=== PATIENT | female | born 1930 | race Two or more races ===

== ENCOUNTER 2016-12-12 20:57 | Inpatient (IN) | payer MEDICAID, OTHER ==
[~2016-12-12] VITALS: Ht 162.6 cm; Wt 54.4 kg
--- NOTE | 2016-12-12 21:00 | NUR ---
PT FANY FROM HOME. PT'S FAMILY CALLED 911 BECAUSE OF ERRATIC BEHAVIOR, CONFUSION. HX OF DEMENTIA. RECENTLY DIAGNOSED W/ UTI AT A DIFFERENT HOSPITAL. GOWNED AND PLACED ON MONITOR. AWAITING MD MCCLAIN.
[2016-12-12] MEDS ORDERED: DEXTROSE 50%-WATER 50 ML DISP.SYRIN ONE (22:02)
--- NOTE | 2016-12-12 22:05 | NUR ---
DR GAMINO AT BEDSIDE FOR EVAL.
[2016-12-12] MEDS ORDERED: LORAZEPAM INJ 2 MG/ML VIAL ONE (22:20)
--- NOTE | 2016-12-12 22:20 | NUR ---
PT STILL AGITATED. DR SLAUGHTER AT BEDSIDE MADE AWARE. ATIVAN 1MG IVP GIVEN PER VERBAL ORDER.
[2016-12-12] MEDS ORDERED: DEXTROSE 50%-WATER 50 ML DISP.SYRIN IVP ONE (22:30)
[2016-12-12] MEDS ORDERED: LEVOFLOXACIN 750 MG /D5W 150ML 150 ML IV ONE ×2 (22:30→23:22)
--- NOTE | 2016-12-12 22:40 | NUR ---
PT IS STILL AGITATED. VERBAL ORDER FOR ANOTHER ATIVAN 1MG IVP. CARRIED OUT.
[2016-12-12 22:41] LABS: BASOPHILS % (AUTO) 0.5 % (0.0-2.0); EOSINOPHILS # (AUTO) 0.2 /CMM (0.0-0.7); EOSINOPHILS % (AUTO) 2.7 % (0.0-6.0); HEMATOCRIT 35 % (33-45); HEMOGLOBIN 11.8 g/dL (11.5-14.8); LYMPHOCYTES # (AUTO) 1.9 /CMM (0.8-4.8); LYMPHOCYTES % (AUTO) 23.2 % (20.0-44.0); MEAN CORPUSCULAR HEMOGLOBIN 29 PG (26.0-33.0); MEAN CORPUSCULAR HGB CONC 33 g/dl (31.0-36.0); MEAN CORPUSCULAR VOLUME 87 fL (82-100); MONOCYTES # (AUTO) 0.8 /CMM (0.1-1.30); MONOCYTES % (AUTO) 9.2 % (2.0-12.0); NEUTROPHILS # (AUTO) 5.3 /CMM (1.8-8.9); NEUTROPHILS % (AUTO) 64.4 % (43.0-81.0); PLATELET COUNT (AUTO) 215 /CMM (150-450); RDW COEFFICIENT OF VARIATION 13.4 (11.5-15.0); RED BLOOD CELL COUNT(AUTO) 4.08 MIL/uL (4.0-5.2); WHITE BLOOD COUNT (AUTO) 8.3 K/uL (4.3-11.0)
[2016-12-12 22:53] LABS: SERUM AMMONIA < 10 umol/L (11-32)
[2016-12-12 22:54] LABS: CALCIUM, SERUM 9.8 mg/dL (8.5-10.1); CARBON DIOXIDE 22 mmol/L (21-32); CHLORIDE 106 mmol/L (98-107); CREATININE 2.3 mg/dL (0.6-1.3); GLUCOSE 223 mg/dL (74-106); SODIUM SERUM 139 mmol/L (136-145); UREA NITROGEN, BLOOD 21 mg/dL (7-18)
[2016-12-12 22:55] LABS: PROTHROMBIN TIME 10.4 SECS (9.5-12.7)
[2016-12-12 22:59] LABS: TROPONIN I < 0.017 ng/mL (0.00-0.056)
[2016-12-12] MEDS ORDERED: LORAZEPAM INJ 2 MG/ML VIAL IV ONE (23:00)
[2016-12-12] MEDS ORDERED: IV NS 0.9% 1,000 ML BAG IV ONE (23:00)
[2016-12-12 23:05] LABS: THYROID STIMULATING HORMONE 1.223 uIU/mL (0.358-3.74)
[2016-12-12 23:06] LABS: ALANINE AMINOTRANSFERASE 19 U/L (12-78); ALBUMIN 2.9 g/dL (3.4-5.0); ALCOHOL, BLOOD < 3 mg/dL (0-0); ALKALINE PHOSPHATASE 84 U/L (46-116); ASPARTATE AMINOTRANSFERASE 22 U/L (15-37); BILIRUBIN,DIRECT 0.1 mg/dL (0.0-0.2); BILIRUBIN,TOTAL 0.6 mg/dL (0.2-1.0); TOTAL PROTEIN, SERUM 6.7 g/dL (6.4-8.2)
[2016-12-12 23:12] LABS: ACETAMINOPHEN 0 ug/ml (10-30); SALICYLATE 0.9 mg/dL (2.8-20.0)
[2016-12-13] VITALS (18 sets, daily range): BP systolic 32–152; BP diastolic 18–86
[2016-12-13] MEDS ORDERED: HALOPERIDOL LACTATE INJ 5 MG/ML VIAL IV ONE
[2016-12-13] MEDS ORDERED: diphenhydrAMINE HCL 50 MG/ML VIAL IV ONE
[2016-12-13] MEDS ORDERED: IV NS 0.9% 1,000 ML BAG IV ONE
[2016-12-13 00:06] LABS: APPEARANCE,URINE SL CLOUDY (CLEAR); BILIRUBIN,URINE NEGATIVE (NEGATIVE); BLOOD, URINE 3+ Ery/uL (NEGATIVE); COLOR,URINE YELLOW (YELLOW); KETONES,URINE NEGATIVE (NEGATIVE); LEUKOCYTE ESTERASE ,URINE TRACE (NEGATIVE); NITRITE, URINE NEGATIVE (NEGATIVE); PROTEIN,URINE 2+ mg/dl (NEGATIVE); UGLUCOSE TRACE mg/dL (NEGATIVE); UROBILINOGEN,URINE 0.2 EU/dL (0.2)
[2016-12-13] MEDS ORDERED: HALOPERIDOL LACTATE INJ 5 MG/ML VIAL ONE (00:09)
[2016-12-13] MEDS ORDERED: diphenhydrAMINE HCL 50 MG/ML VIAL ONE (00:09)
--- NOTE | 2016-12-13 00:10 | NUR ---
HALF LITER NS BOLUS ORDERED BY SERENITY SLAUGHTER. CARRIED OUT.
[2016-12-13 00:11] LABS: BACTERIA,URINE None seen /HPF (None Seen); SQUAMOUS EPITHELIAL CELL,UR Few /HPF (None Seen)
--- NOTE | 2016-12-13 00:38 | NUR ---
CALLED RADIOLOGY TO ATTEMPT CT STUDY
[2016-12-13] MEDS ORDERED: IV NS 0.9% 1,000 ML IV PRN (02:41)
[2016-12-13] MEDS ORDERED: POTASSIUM CL. PREMIX PERIPHER. 50 ML ONE ×2 (02:54→04:13)
[2016-12-13] MEDS ORDERED: ACETAMINOPHEN 325 MG TABLET PO PRN (03:00)
[2016-12-13] MEDS ORDERED: ONDANSETRON HCL/PF 4 MG/2 ML VIAL IVP PRN (03:00)
[2016-12-13] MEDS ORDERED: MAG HYDROX/AL HYDROX/SIMETH 30 ML UDC PO PRN (03:00)
[2016-12-13] MEDS ORDERED: MAGNESIUM HYDROXIDE 30 ML UDC PO PRN (03:00)
[2016-12-13] MEDS: POTASSIUM CL. PREMIX PERIPHER. 50 ML IV SCH ×2 (03:00→04:11)
[2016-12-13] MEDS ORDERED: LORAZEPAM INJ 2 MG/ML VIAL IV PRN (03:30)
--- NOTE | 2016-12-13 05:19 | NUR ---
Unable to assess no family at the [facility] pt nonenglish speaking Addendum: 12/13/16 at 0611 by SUSI GANNON RN Amended: Links added.
--- NOTE | 2016-12-13 06:19 | NUR ---
RECIEVED PT FROM er AT 0430 ALERT, NONENGLISH SPEAKING, SEEMS TO HAVE SOME UNDERSTANDING OF [place]. Seen by her followinh my directions. Carrillo in place. Bedalarm on.
[2016-12-13 07:16] LABS: ALANINE AMINOTRANSFERASE 22 U/L (12-78); ALBUMIN 2.9 g/dL (3.4-5.0); ALKALINE PHOSPHATASE 87 U/L (46-116); ASPARTATE AMINOTRANSFERASE 23 U/L (15-37); BILIRUBIN,DIRECT 0.1 mg/dL (0.0-0.2); BILIRUBIN,TOTAL 0.5 mg/dL (0.2-1.0); CALCIUM, SERUM 9.5 mg/dL (8.5-10.1); CARBON DIOXIDE 23 mmol/L (21-32); CHLORIDE 110 mmol/L (98-107); CREATININE 2.1 mg/dL (0.6-1.3); GLUCOSE 65 mg/dL (74-106); MAGNESIUM 2.4 mg/dL (1.8-2.4); PHOSPHORUS 3.1 mg/dL (2.5-4.9); POTASSIUM 3.4 mmol/L (3.5-5.1); SODIUM SERUM 145 mmol/L (136-145); TOTAL PROTEIN, SERUM 6.9 g/dL (6.4-8.2); UREA NITROGEN, BLOOD 19 mg/dL (7-18)
[2016-12-13 07:30] LABS: CHOLESTEROL 125 mg/dL (<200); HDL CHOLESTEROL 28 mg/dL (40-60); LDL 78 mg/dL (0-99); THYROID STIMULATING HORMONE 1.324 uIU/mL (0.358-3.74); TRIGLYCERIDES 120 mg/dL (30-150)
[2016-12-13] MEDS ORDERED: PANTOPRAZOLE 40 MG TABLET.DR PO SCH (07:30)
[2016-12-13] MEDS ORDERED: AMLO10TA2 PO (08:19)
[2016-12-13] MEDS ORDERED: ASPI-991 PO (08:19)
[2016-12-13] MEDS ORDERED: SIMV20TA6 PO (08:19)
[2016-12-13] MEDS ORDERED: DONE10TA44 PO (08:19)
[2016-12-13] MEDS ORDERED: QUET25TA PO (08:19)
[2016-12-13] MEDS ORDERED: HYDR-4077 PO (08:19)
[2016-12-13] MEDS ORDERED: FERR-58 PO (08:19)
--- NOTE | 2016-12-13 08:19 | NUR ---
RECEIVED PATIENT UP IN BED, AWAKE, CALM, NO SOB, BREATHING EVEN AND UNLABORED, NO FACIAL GRIMACING NOTED. PATIENT WITH PERIPHERAL IV ON RIGHT HAND RECEIVING NS @ 75 CC/ HR. TOLERATING BREAKFAST WELL. PATIENT WITH NO SIGNS AND SYMPTOMS OF ACUTE DISTRESS. PATIENT'S NEEDS ATTENDED TO, BED ALARM TURNED ON FOR PATIENT'S SAFETY. WILL CONTINUE TO MONITOR.
[2016-12-13] MEDS ORDERED: METO50TA3 PO (08:20)
[2016-12-13] MEDS: hydrALAZINE HCL 50 MG TABLET PO SCH ×3 (09:00→17:00)
[2016-12-13] MEDS ORDERED: ASPIRIN EC 81 MG TABLET.DR PO SCH (09:00)
[2016-12-13] MEDS ORDERED: AMLODIPINE BESYLATE 10 MG TABLET PO SCH (09:00)
[2016-12-13] MEDS: METOPROLOL TARTRATE 50 MG TABLET PO SCH ×2 (09:00→17:00)
[2016-12-13] MEDS ORDERED: FERROUS SULFATE (325 MG) 325 MG/TAB TABLET PO SCH (09:00)
[2016-12-13] MEDS ORDERED: CEFTRIAXONE 1 G in IV D5W 50 ML IV SCH (09:00)
[2016-12-13] MEDS ORDERED: QUETIAPINE FUMARATE 25 MG TABLET PO SCH ×2 (09:00→17:00)
[2016-12-13] MEDS ORDERED: *INSULIN REGULAR(HUMULIN R)HUM 100 UNIT/ML VIAL SQ PRN (09:30)
[2016-12-13] MEDS ORDERED: INSULIN REGULAR, HUMAN 100 UNIT/ML 3 ML VIAL SQ PRN (09:30)
[2016-12-13] MEDS ORDERED: DEXTROSE 50%-WATER 50 ML DISP.SYRIN IV PRN (09:30)
[2016-12-13] MEDS ORDERED: POTASSIUM CHLORIDE 20 MEQ TAB.PRT.SR PO ONE (09:30)
[2016-12-13] MEDS: BLOOD SUGAR DIAGNOSTIC 1 EACH STRIP IN SCH ×2 (11:59→17:30)
--- NOTE | 2016-12-13 12:00 | NUR ---
RN MS NOTES PT IN BED, AWAKE, ALERT NO SIGN OF PAIN OR DISTRESS, TOLERATING ROOM AIR WELL, PT SEEN BY CRYS, ORDERS MADE AND CARRIED OUT, ASSISTED WITH MEALS, PT NOTED TO HAVE GOOD APPETITE, BED ALARM ON, SAFETY PRECAUTIONS OBSERVED.
--- NOTE | 2016-12-13 13:30 | NUR ---
RN MS NOTES PT AWAKE, IN BED, GETTING ANXIOUS AND TRYING TO GET OUT OF BED, ATIVAN GIVEN ORDERED, KEPT CUT OFF WORKER BED.
--- NOTE | 2016-12-13 14:30 | NUR ---
RN MS NOTES PT IN BED, AWAKE, VERBALLY RESPONSIVE, NO SIGN OF PAIN OR DISTRESS, BREATHING PATTERN NORMAL AND NOT LABORED, CALL LIGHT WITHIN REACH, SAFETY PRECAUTIONS OBSERVED, HOURLY ROUNDING DONE, NEEDS ATTENDED.
--- NOTE | 2016-12-13 16:09 | NUR ---
Patient primary language is Armenian. She lives locally with family. She ambulates with a walker, requires assistance with adl's. Family is involved and supportive with plan of care. Current plan is to return home, family will provide ride to home. Addendum: 12/13/16 at 1610 by ADAM BELL RN Amended: Links added.
--- NOTE | 2016-12-13 16:15 | NUR ---
RN MS NOTES NOTED PT NON RESPONSIVE, UNABLE TO AROUSE, NO PALPABLE PULSE, NO CHEST RISE NOTED, CALLED CODE BLUE, RAPID RESPONSE TEAM ARRIVED IMMEDIATELY, STARTED CPR AT 1616, DR. KELLEY AT BEDSIDE GIVING ORDERS, AT 1632, BP 88/53, HR 67, AT 1636 PT WAS TRANSFERRED TO ICU BED 253-1, REPORT GIVEN TO KAREN HAM.
[2016-12-13] MEDS ORDERED: DEXTROSE 50%-WATER 50 ML DISP.SYRIN IV ONE (16:57)
[2016-12-13] MEDS ORDERED: EPINEPHRINE (1:10,000) SYRINGE 1 MG/10 ML DISP.SYRIN IVP ONE ×2 (16:57→18:44)
[2016-12-13] MEDS ORDERED: NOREPINEPHRINE 4 MG/4 ML AMPUL IV ONE (16:57)
[2016-12-13] MEDS ORDERED: FEE EMEERGENCY 1 MIN EA MC ONE (16:57)
[2016-12-13] MEDS ORDERED: AMIODARONE 150 MG/3 ML VIAL IV ONE ×2 (16:57→18:44)
[2016-12-13] MEDS ORDERED: AMIODARONE 900 MG in IV D5W 482 ML IV PRN ×4 (17:00)
[2016-12-13] MEDS ORDERED: NOREPINEPHRINE 8 MG in IV D5W 500 ML IV PRN (17:00)
--- NOTE | 2016-12-13 17:00 | NUR ---
ICU/RN PT TRANSFERRED FROM M/S ,POST CODE BLUE.INTUBATED ON THE VENT AC MODE,FIO2-100%.LOW BP .A-FIB ON MONITOR. LEVOPHED AND AMIODARONE DRIPS STARTED ORDERED.PT IS NOT RESPONSIVE.FAMILY NOTIFIED.PER FAMILY REQUEST PT IS FULL CODE.NEW IV STARTED.BOLUS NS 1000 ML GIVEN ORDERED.
--- NOTE | 2016-12-13 17:00 | NUR ---
ICU NOTE RECEIVED PT S/P CODE BLUE, REPORT PT INTUBATED, ETT 7.5 @ 22 CM LIPLINE AC 16 TV 450 FO2 100%, PEEP 0, PTS HR 58 A FIB, BP 69/46, PT HAS RIGHT HAND #22G, INSERTED LAC # 20G, PUPILS FIXED AND DILATED, F/C IN PLACE, DIFIB PADS IN PLACE.
--- NOTE | 2016-12-13 17:03 | NUR ---
PT. 86 Y OLD FEMALE CODE BLUE 1615 X4 RT'S AT THE BEDSIDE. CPR STARTED AND PT. AMBU BAG PER PROTOCOL. ASSIST DR. KELLEY, ER INTUBATED @1619 ETT 7.5 @ 22CM LIP LINE PT. TRANSFERRED TO ICU0 PLACED ON VENT WITH NOTED SETTINGS. (AC 16,450 100%) CONTINUE MONITOR AND CARE. AMBU BAG REMAIN AT THE BEDSIDE.
--- NOTE | 2016-12-13 17:15 | NUR ---
ICU/RN SECOND CODE BLUE ACTIVATED.PT IS PEA.ER MD AT BED SIDE .SEE DETAILS-CODE BLUE RECORD.
[2016-12-13] MEDS ORDERED: DOPamine 400 MG in IV D5W 250 ML IV PRN (17:30)
[2016-12-13 17:43] LABS: ABG BASE EXCESS -21.7 mmol/L; ABG OXYGEN SATURATION 98.4 % (92.0-98.5); ABG PCO2 41.5 mmHg (35.0-45.0); ABG PH 6.963 (7.350-7.450); ABG PO2 575.1 mmHg (75.0-100.0); AaDO2 96.4 mmHg; COHb 0.1 % (0.5-1.5); MetHb 1.1 % (0.0-1.5); O2Hb 97.2 % (94.0-97.0); SITE, ABG Right Femoral; VENT MODE, BG AMBU BAG CPR
--- NOTE | 2016-12-13 17:55 | NUR ---
ICU/RN PT HAS PULSE 38-BPM.ER MD AT BED SIDE. A-LINE INSERTED.ON DOPAMINE AND LEVOPHED DRIPS.NS 1000 ML BOLUS STARTED ORDERED.INTRAOSSEOUS PLACED .CONTINUE MONITORING.FAMILY AT BEDSIDE. TALKING TO OSCAR BENOIT.
[2016-12-13] MEDS ORDERED: SODIUM BICARBONATE SYR 50 MEQ/50 ML DISP.SYRIN IV ONE (18:44)
[2016-12-13] MEDS ORDERED: CALCIUM CHLORIDE 1,000 MG/10 ML DISP.SYRIN IV ONE (18:44)
[2016-12-13] MEDS ORDERED: ATROPINE SULFATE 1 MG/10 ML DISP.SYRIN IV ONE (18:44)
--- NOTE | 2016-12-13 19:06 | NUR ---
ICU NOTE CRYS BENOIT AT BEDSIDE, PUPILS ARE FIXED AND DILATE, PT HAS NO GAG REFLEX, PER FAMILY, STOP EVERYTHING EXCEPT BREATHING MACHINE, ALL BP MEDICATIONS D/C.
--- NOTE | 2016-12-13 19:30 | NUR ---
RN NOTES RECEIVED THE PATIENT ON VENT, POST CODE BLUE. PT IS UNRESPONSIVE, EYES FIXED AND DILATED, NO GAG REFLEX PER CRYS PLANT TECH ASSESSMENT AT BEDSIDE. ON VENT WITH SETTINGS AC 16, TV 450, 100% FIO2, 0 PEEP. FAMILY HAS DECIDED FOR PATIENT TO BE DNR AND ALL MEDICATIONS TO BE STOPPED. PER CRYS PLANT TECH, STOP ALL MEDS INCLUDING IV DRIPS. [facility] VENT TO BE MAINTAINED UNTIL LAST FAMILY MEMBER ARRIVES. HR IS NOW 40'S. UNABLE TO OBTAIN BP AT THIS POINT. BED LOW AND LOCKED, SIDERAILS UP. WILL MONITOR
--- NOTE | 2016-12-13 19:44 | NUR ---
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
--- NOTE | 2016-12-13 19:52 | NUR ---
ICU/RN-PRONOUNCEMENT OF : PATIENT CODE STATUS"DO NOT RESUSCITATE". UNRESPONSIVE TO ANY FORM OF STIMULI. PUPILS ARE FIXED AND DILATED. EKG, ASYSTOLE X 2 LEADS. APNEIC, RESPIRATIONS ARE ABSENT. PERIPHERAL PULSES ABSENT. NO SIGNS OF LIFE. PATIENT PRONOUNCED AT 1951. BY :ALPHONSE RUCKER
--- NOTE | 2016-12-13 19:54 | NUR ---
ICU NOTE CRYS BENOIT DIAGNOSTIC TECHNICIAN, SPOKE WITH FAMILY REGARDING CXR RESULTS, FAMILY DOES NOT WANT ANY AGGRESSIVE TREATMENT
--- NOTE | 2016-12-13 20:26 | NUR ---
RN NOTES 1949 - PT IS PRONOUNCED / BY CLAIMS SPECIALIST. NO HR, BP, AND PULSE NOTED. PATIENT IS TAKEN OFF MECH VENT. 1999 - FAMILY CALLED BY CLAIMS SPECIALIST. ADMITTING AND NURSING MAIL READER NOTIFIED WELL. 2003 - BAGGAGE AGENT SUPERVISOR CALLED TO REPORT . PT IS NOT A BAGGAGE AGENT SUPERVISOR'S CASE. 2009 - [facility] CALLED TO REPORT . PER ANNALEE ([facility] REP), PT IS NOT QUALIFIED A DONOR BECAUSE OF PT AGE. CASE # [id number] Addendum: 12/13/16 at 2119 by ABDIRASHID ANDERSON RN CRYS TRUSTEE OF ESTATE WAS AT BEDSIDE WHEN PT WAS PRONOUNCED /
--- NOTE | 2016-12-13 20:38 | NUR ---
Patient primary language is Syriac.She lives locally with family. She ambulates with a walker, requires assistance with adl's. Patient is currently on service with [facility] [phone]. Family is involved and supportive with plan of care. Current plan is to return home,family will provide ride to home. Addendum: 12/13/16 at 2037 by ADAM BELL RN Amended: Links added.
[2016-12-13] MEDS ORDERED: SIMVASTATIN 20 MG TABLET PO SCH (22:00)
[2016-12-13] MEDS ORDERED: DONEPEZIL 5 MG TABLET PO SCH (22:00)
== END 2016-12-13 19:52 | disposition expired | DRG 420 ==
LOC: ER 20:59 → TELE 12-13 02:10 → MED 12-13 10:07 → ICU 12-13 16:47
PROVIDERS: ADMIT Nurse Practitioner Acute Care; ATTEND Nurse Practitioner Acute Care
DX: E11.649 Type 2 diabetes mellitus with hypoglycemia without coma (principal); R57.0 Cardiogenic shock; G93.41 Metabolic encephalopathy; N17.9 Acute kidney failure, unspecified; E11.22 Type 2 diabetes mellitus with diabetic chronic kidney disease; N39.0 Urinary tract infection, site not specified; E78.5 Hyperlipidemia, unspecified; E87.6 Hypokalemia; I25.10 Atherosclerotic heart disease of native coronary artery without angina pectoris; N18.9 Chronic kidney disease, unspecified; E87.2 Acidosis; F03.90 Unspecified dementia, unspecified severity, without behavioral disturbance, psychotic disturbance, mood disturbance, and anxiety; Z79.84 Long term (current) use of oral hypoglycemic drugs; G31.9 Degenerative disease of nervous system, unspecified; F03.91 Unspecified dementia, unspecified severity, with behavioral disturbance; Z66 Do not resuscitate; I13.0 Hypertensive heart and chronic kidney disease with heart failure and stage 1 through stage 4 chronic kidney disease, or unspecified chronic kidney disease; I12.9 Hypertensive chronic kidney disease with stage 1 through stage 4 chronic kidney disease, or unspecified chronic kidney disease
CPT/HCPCS: 36415; 36600; 70450-TC; 71010-TC; 80048-TC; 80061-TC; 80076-TC; 80305; 81000-TC; 82140-TC; 82962-TC; 83605-TC; 83735-TC; 84100-TC; 84443-TC; 84484-TC; 85025-TC; 85730-TC; 87040-TC; 87081-TC; 87086-TC; 92950-TC; 94002-TC; 99082-TC; A4606; C1751; G0480; J0171; J0282; J0461; J0696; J1200; J1265; J1630; J1815; J1956; J2060; J3480; J3490; J7030; J7040; J7060; Z7610